=== PATIENT | male | born 1995 | race African-American/Black ===

== ENCOUNTER 2018-04-14 22:25 | Emergency (ER) | payer OTHER ==
[~2018-04-14] VITALS: Ht 175.3 cm; Wt 102.2 kg
[2018-04-14 22:47] LABS: HEMATOCRIT 44.9 % (38.0-50.0); HEMOGLOBIN 15.8 G/DL (12.5-16.6); MCH 29.8 PG (29.0-34.0); MCHC 35.2 G/DL (30.0-36.0); MCV 84.7 FL (86-99); PLATELET COUNT 268 K/uL (156-360); RBC DIS.WIDTH-CV 11.9 % (11.8-14.6); RBC DIS.WIDTH-SD 36.8 % (39-53); WHITE BLOOD COUNT 7.8 K/uL (4.1-10.2)
[2018-04-14 22:55] LABS: CHLORIDE 105 mEq/L (99-109); POTASSIUM 3.5 mEq/L (3.7-5.4); SODIUM 141 mEq/L (136-147)
[2018-04-14 22:57] LABS: GLUCOSE 95 mg/dL (70-99)
[2018-04-14 23:02] LABS: UREA NITROGEN (BUN) 10 mg/dL (9-23)
[2018-04-14 23:06] LABS: GFR ESTIMATE (CALCULATED) > 59 mL/min/ (58.99-99999)
[2018-04-14 23:08] LABS: TROP-I INTERPRETATION NEGATIVE; TROPONIN-I < 0.01 ng/mL (0.0-0.30)
[2018-04-15 01:44] LABS: TROP-I INTERPRETATION NEGATIVE; TROPONIN-I < 0.01 ng/mL (0.0-0.30)
[2018-04-15 02:08] VITALS: BP 125/78
== END 2018-04-15 02:09 | disposition home or self-care (01) ==
LOC: EME 22:25
PROVIDERS: Emergency Medicine
DX: R07.89 Other chest pain (principal)
CPT/HCPCS: 71046; 80048; 84484; 85027; 93005; 99281; 99284